=== PATIENT | female | born 1975 | race Caucasian/White ===

== ENCOUNTER 2022-02-26 10:28 | Outpatient (CLI) | payer OTHER, SELFPAY ==
[2022-02-26 12:25] LABS: Albumin* 4.6 g/dL (3.3-5.0); Chloride* 106 mmol/L (96-114)
[2022-02-26 12:26] LABS: Potassium* 4.4 mmol/L (3.6-5.1); Sodium* 142 mmol/L (135-149)
[2022-02-26 12:28] LABS: Alkaline Phosphatase* 51 U/L (40-150); Aspartate Amino Transferase* 23 U/L (12-35); Bilirubin Total* 1.1 mg/dL (0.1-1.5); Blood Urea Nitrogen* 8 mg/dL (5-24); Carbon Dioxide* 31 mmol/L (20-32); Cholesterol* 222 mg/dL (90-199); Creatinine* 0.7 mg/dL (0.5-1.5); Estimated Glomerular Filt Rate 109 ml/min; Glucose* 85 mg/dL (60-115); Total Protein* 7.2 g/dL (6.0-8.3)
[2022-02-26 12:29] LABS: Alanine Aminotransferase* 15 U/L (4-35); Calcium* 9.3 mg/dL (8.4-10.6); HDL Cholesterol* 71 mg/dL (>=50); LDL Cholesterol Calculated 139 mg/dL (<100); Triglycerides* 59 mg/dL (40-149)
== END 2022-02-26 10:29 | disposition home or self-care (01) ==
PROVIDERS: Visit Provider Family Medicine
DX: Z00.00 Encounter for general adult medical examination without abnormal findings (principal); G43.909 Migraine, unspecified, not intractable, without status migrainosus; R53.83 Other fatigue; Z13.6 Encounter for screening for cardiovascular disorders
CPT/HCPCS: 80053; 80061

== ENCOUNTER 2024-03-30 07:34 | Outpatient (CLI) | payer OTHER, SELFPAY ==
--- NOTE | 2024-03-30 07:45 | CRLHL7_ITS ---
For Patients: As a result of the Cures Act, medical imaging exams and procedure reports are released immediately into your electronic medical record. You may view this report before your referring provider. If you have questions, please contact your health care provider. DIGITAL DIAGNOSTIC BILATERAL MAMMOGRAM USING TOMOSYNTHESIS AND COMPUTER-AIDED DETECTION RIGHT BREAST ULTRASOUND CLINICAL HISTORY: RIGHT breast lump. COMPARISON: 07/18/2020. TECHNIQUE: Digital BILATERAL mammogram in five projections with computer-aided detection. Tomosynthesis was used in this interpretation. Real-time ultrasound imaging of RIGHT breast with imaging documentation. BREAST COMPOSITION: The breasts are heterogeneously dense, which may obscure small masses. FINDINGS: 3D CC/MLO BILATERAL mammogram images submitted along with a RIGHT 2D XCCL imaged. Nodular density within the upper outer quadrant RIGHT breast is present. No architectural distortion. Benign calcifications are present. Unremarkable LEFT breast mammogram. Targeted RIGHT breast ultrasound performed at 10 o`clock 10 cm from the nipple. In this location, there is a simple circumscribed anechoic cyst with increased through-transmission measuring 1.8 x 1.5 x 1.7 cm. IMPRESSION: Simple cyst RIGHT breast 10 o`clock 10 cm from the nipple measuring 1.8 cm. No suspicious findings. RECOMMENDATIONS: Routine screening mammography. A lay language report of this examination will be provided to the patient. BI-RADS Category 2: Benign Dictated by Colin Quinteros MD @ 03/30/2024 9:41:35 AM jj/Dictated by: Colin Quinteros MD @ 03/30/2024 9:41:00 AM (Electronically Signed)
--- NOTE | 2024-03-30 08:15 | CRLHL7_ITS ---
For Patients: As a result of the Cures Act, medical imaging exams and procedure reports are released immediately into your electronic medical record. You may view this report before your referring provider. If you have questions, please contact your health care provider. SEE DIGITAL DIAGNOSTIC BILATERAL MAMMOGRAM PERFORMED SAME DAY CRL:rocael cote/Dictated by: Colin Quinteros MD @ 03/30/2024 9:41:00 AM (Electronically Signed)
== END 2024-03-30 07:35 | disposition home or self-care (01) ==
PROVIDERS: PCP Nurse Practitioner Family; Visit Provider Nurse Practitioner Family
DX: N63.10 Unspecified lump in the right breast, unspecified quadrant (principal); R92.333 Mammographic heterogeneous density, bilateral breasts
CPT/HCPCS: 76642; 77066; G0279